=== PATIENT | female | born 1960 | race Caucasian/White ===

== ENCOUNTER 2019-03-14 05:23 | Observation (INO) | payer OTHER ==
[2019-03-14] MEDS: CEFAZOLIN 2 GM/50 ML (PMX) 50 ML IVPB (05:00)
[2019-03-14] MEDS: LACTATED RINGER'S 1L BAG IV (05:45)
[2019-03-14] MEDS ORDERED: SODIUM CL BACTERIOSTATIC 30 ML INJ (06:56)
[2019-03-14] MEDS ORDERED: BUPIVACAINE 0.5%/EPI (SDV) 30 ML INJ (06:56)
[2019-03-14] MEDS ORDERED: ACETAMINOPHEN 325 MG TAB PO (07:00)
[2019-03-14] MEDS ORDERED: BISACODYL 10 MG SUPP PR (07:00)
[2019-03-14] MEDS ORDERED: HYDROCODONE/APAP (10/325) TAB PO (07:00)
[2019-03-14] MEDS: CEFAZOLIN 1 GM/50 ML (PMX) 50 ML IVPB ×3 (07:00→22:58)
[2019-03-14] MEDS ORDERED: HYDROmorphONE 0.5 MG/0.5 ML SYG IV (07:00)
[2019-03-14] MEDS ORDERED: SEVOFLURANE 15 MIN (07:00)
[2019-03-14] MEDS ORDERED: DIPHENHYDRAMINE 25 MG CAP PO (07:00)
[2019-03-14] MEDS ORDERED: DIPHENHYDRAMINE 50 MG INJ IV ×2 (07:00→08:30)
[2019-03-14] MEDS ORDERED: NALOXONE (0.4 MG/ML) INJ IV (07:00)
[2019-03-14] MEDS ORDERED: MAGNESIUM HYDROXIDE 30ML CUP PO (07:00)
[2019-03-14] MEDS ORDERED: CEPASTAT LOZENGE MT (07:00)
[2019-03-14] MEDS ORDERED: SUCCINYLCHOLINE CHLORIDE 100 MG/5 ML SYG IV (07:03)
[2019-03-14] MEDS ORDERED: NEOSTIGMINE 3 MG/3 ML SYRINGE ×2 (07:03→08:03)
[2019-03-14] MEDS ORDERED: PROPOFOL 20 ML (07:03)
[2019-03-14] MEDS ORDERED: GLYCOPYRROLATE 0.4 MG INJ ×2 (07:03→08:03)
[2019-03-14] MEDS ORDERED: ROCURONIUM 50 MG INJ ×2 (07:03→08:03)
[2019-03-14] MEDS ORDERED: LIDOCAINE 2% (SDV) 5 ML INJ (07:03)
[2019-03-14] MEDS ORDERED: MEPERIDINE 100 MG INJ (07:04)
[2019-03-14] MEDS: HEPARIN 1000 UNITS/ML 10 ML INJ (07:55)
[2019-03-14] MEDS ORDERED: METOCLOPRAMIDE 10 MG INJ (08:02)
[2019-03-14] MEDS ORDERED: CEFAZOLIN 1 GM INJ (08:02)
[2019-03-14] MEDS ORDERED: ONDANSETRON 4 MG INJ (08:02)
[2019-03-14] MEDS: GELATIN SIZE 100 SPONGE (08:21)
[2019-03-14] MEDS: THROMBIN 5000 UNIT (RECOTHROM) VIAL ×2 (08:21)
[2019-03-14] MEDS: CA CHLORIDE 10% 10 ML SYRINGE (08:21)
[2019-03-14] MEDS: POLYMYXIN/BACITRACIN 1L IRRIG (08:22)
[2019-03-14] MEDS ORDERED: METOCLOPRAMIDE 10 MG INJ IV (08:30)
[2019-03-14] MEDS ORDERED: EPHEDrine 25 MG/5 ML SYG IV (08:30)
[2019-03-14] MEDS ORDERED: ONDANSETRON 4 MG INJ IV (08:30)
[2019-03-14] MEDS ORDERED: FENTAnyl 50 MCG/ML VIAL IV ×2 (08:30)
[2019-03-14] MEDS ORDERED: MIDAZOLAM 1 MG/ML 2 ML INJ IV (08:30)
[2019-03-14] MEDS ORDERED: HYDROmorphONE 1 MG/5 ML IV SYRINGE IV ×2 (08:30)
[2019-03-14] MEDS ORDERED: MEPERIDINE 25 MG INJ IV (08:30)
[2019-03-14] MEDS ORDERED: LABETALOL HCL 20MG INJ IV (08:30)
[2019-03-14] MEDS ORDERED: hydrALAzine 20 MG INJ IV (08:30)
[2019-03-14] MEDS: FENTAnyl 50 MCG/ML VIAL IV ×2 (09:40→09:50)
[2019-03-14] MEDS: HYDROmorphONE 1 MG/5 ML IV SYRINGE IV ×2 (10:19→11:45)
[2019-03-14] MEDS: DOCUSATE SODIUM 100 MG CAP PO ×2 (10:19→20:08)
[2019-03-14] MEDS: D5W-0.45 NACL + KCL 20 MEQ 1,000 ML IV ×2 (15:11→16:23)
[2019-03-14] MEDS: HYDROCODONE/APAP (10/325) TAB PO ×2 (15:25→20:09)
[2019-03-14] MEDS: ONDANSETRON 4 MG INJ IV (18:08)
[2019-03-14] MEDS: CYCLOBENZAPRINE 10 MG TAB PO (23:01)
[2019-03-15] MEDS: D5W-0.45 NACL + KCL 20 MEQ 1,000 ML IV ×2 (02:31→12:58)
[2019-03-15 04:59] LABS: ADD MAN DIFF? NO
[2019-03-15 05:11] LABS: WHITE BLOOD COUNT 16.2 10^3/ul (4.8-10.8)
[2019-03-15 05:11] LABS: BASOPHILS % 0.1 % (0.0-2.0); EOSINOPHILS % 0.1 % (0.0-7.0); HEMATOCRIT 35.4 % (37.0-47.0); HEMOGLOBIN 11.3 g/dl (12.0-16.0); LYMPHOCYTES # 1.2 10^3/ul (0.8-2.9); LYMPHOCYTES % 7.1 % (15.0-51.0); MEAN CORPUSCULAR HEMOGLOBIN 31.3 pg (29.0-33.0); MEAN CORPUSCULAR HGB CONC 31.9 g/dl (32.0-37.0); MEAN CORPUSCULAR VOLUME 98.1 fl (82.0-101.0); MEAN PLATELET VOLUME 11.7 fl (7.4-10.4); MONOCYTES % 6.2 % (0.0-11.0); NEUTROPHIL # 13.9 10^3/ul (1.6-7.5); NEUTROPHILS % 85.9 % (39.0-77.0); PLATELET COUNT 198 10^3/UL (140-415); RED BLOOD COUNT 3.61 10^6/ul (4.20-5.40); RED CELL DISTRIBUTION WIDTH 13.1 % (11.5-14.5)
[2019-03-15 05:39] LABS: ANION GAP 9 (5-13); BLOOD UREA NITROGEN 10 mg/dl (7-20); CALCIUM 8.8 mg/dl (8.4-10.2); CARBON DIOXIDE 27 mmol/L (21-31); CHLORIDE 102 mmol/L (97-110); CREATININE 0.42 mg/dl (0.44-1.00); Estimated GFR > 60 mL/min (>60); GLUCOSE 135 mg/dl (70-220); MAGNESIUM 1.8 mg/dl (1.7-2.5); POTASSIUM 3.8 mmol/L (3.5-5.1); SODIUM 138 mmol/L (135-144)
[2019-03-15] MEDS: HYDROCODONE/APAP (10/325) TAB PO ×2 (05:53→14:19)
[2019-03-15] MEDS: LEVOTHYROXINE 88 MCG TAB PO (05:54)
[2019-03-15] MEDS: ONDANSETRON 4 MG INJ IV (06:19)
[2019-03-15] MEDS: DOCUSATE SODIUM 100 MG CAP PO (08:50)
[2019-03-15] MEDS: CYCLOBENZAPRINE 10 MG TAB PO (08:50)
[2019-03-15] MEDS: MAGNESIUM HYDROXIDE 30ML CUP PO (08:51)
== END 2019-03-15 16:06 | disposition home or self-care (01) ==
LOC: SDS 05:23 → REC 06:58 → MS1 14:39
DX: M51.16 Intervertebral disc disorders with radiculopathy, lumbar region (principal); K21.9 Gastro-esophageal reflux disease without esophagitis; E03.9 Hypothyroidism, unspecified
CPT/HCPCS: 63030; 72020; 80048; 83735; 85025; 86999; 88304; 97110; 97116; 97161; 97530; 99217